=== PATIENT | female | born 1940 | race Caucasian/White ===

== ENCOUNTER 2017-11-02 16:06 | Inpatient (IN) | payer MEDICARE, OTHER ==
[~2017-11-02] VITALS: Ht 154.9 cm; Wt 80.0 kg
[2017-11-02 17:27] LABS: BASOPHILS # (AUTO) 0.1 X10'3 (0-0.2); BASOPHILS % (AUTO) 0.8 % (0-1); EOSINOPHILS # (AUTO) 0.1 X10'3 (0-0.9); EOSINOPHILS % (AUTO) 1.8 % (0-6); HEMATOCRIT 37.3 % (35.0-45.0); HEMOGLOBIN 12.3 g/dl (12.0-16.0); LYMPHOCYTES # (AUTO) 2.3 X10'3 (1.1-4.8); LYMPHOCYTES % (AUTO) 34.9 % (21-51); MEAN CORPUSCULAR HEMOGLOBIN 31.2 PG (27.0-31.0); MEAN CORPUSCULAR VOLUME 94.6 FL (78-98); MEAN PLATELET VOLUME 11.2 FL (7.4-10.4); MONOCYTES # (AUTO) 0.4 X10'3 (0-0.9); MONOCYTES % (AUTO) 6.7 % (2-12); NEUTROPHILS # (AUTO) 3.6 X10'3 (1.8-7.7); NEUTROPHILS % (AUTO) 55.8 % (42-75); PLATELET COUNT 154 X10'3 (140-440); RED BLOOD COUNT 3.94 X10'6 (4.20-5.60); RED CELL DISTRIBUTION WIDTH 14.3 % (11.5-14.5); WHITE BLOOD COUNT 6.5 X10'3 (4.5-11.0)
[2017-11-02 17:38] LABS: ALANINE AMINOTRANSFERASE 45 U/L (12-78); ALBUMIN 3.4 G/DL (3.4-5.0); ALBUMIN/GLOBULIN RATIO 0.9 (1.1-1.5); ALKALINE PHOSPHATASE 99 IU/L (46-116); ANION GAP 9 (8-16); ASPARTATE AMINO TRANSFERASE 48 U/L (10-37); BILIRUBIN,TOTAL 0.7 MG/DL (0.1-1.0); CHLORIDE 105 MMOL/L (99-107); CREATININE 0.94 MG/DL (0.40-0.90); GLUCOSE 91 MG/DL (70-104); MAGNESIUM 2.3 MG/DL (1.5-2.4); POTASSIUM 3.6 MMOL/L (3.5-5.1); SODIUM 143 MMOL/L (135-145); TOTAL CARBON DIOXIDE 28.9 MMOL/L (24-32); TOTAL PROTEIN 7.3 G/DL (6.4-8.2); eGFR 58 ML/MIN
[2017-11-02 17:49] LABS: BLOOD UREA NITROGEN 14 MG/DL (7-18); BUN/CREATININE RATIO 14.9 (6.6-38.0)
[2017-11-02] MEDS ORDERED: acetaminophen 325mg tablet PO PRN (18:50)
[2017-11-02] MEDS ORDERED: potassium Cl 20 mEq SR tablet PO PRN (18:50)
[2017-11-02] MEDS ORDERED: potassium Cl 40MEQ/NS 500ml 500 ML IV PRN ×2 (18:50)
[2017-11-02] MEDS ORDERED: mag hydrox/Alum hydrox/simeth 30ml oral suspension PO PRN (18:50)
[2017-11-02] MEDS ORDERED: HYDROmorphone 1 mg/ml syringe IV PRN (18:50)
[2017-11-02] MEDS ORDERED: magnesium Cl slow-release 64mg tablet PO PRN (18:50)
[2017-11-02] MEDS ORDERED: magnesium 4gm in 100ml NS 100 ML IV PRN (18:50)
[2017-11-02] MEDS ORDERED: magnesium hydroxide 30ml (MOM) UD suspension PO PRN (18:50)
[2017-11-02] MEDS ORDERED: ondansetron/PF 4mg/2ml inj IV PRN (18:50)
[2017-11-02] MEDS ORDERED: magnesium 2GM in 50ml NS 50 ML IV PRN (18:50)
[2017-11-02] MEDS ORDERED: atropine 1 MG/1 ML vial IV ONE (18:55)
[2017-11-02] MEDS ORDERED: atropine 0.1mg/ml 10ml syringe IV ONE (19:10)
[2017-11-02] MEDS ORDERED: SYN0.088T PO (19:13)
[2017-11-02] MEDS ORDERED: HYDR-565 PO (19:13)
[2017-11-02] MEDS ORDERED: NO HOME MEDS (19:16)
[2017-11-02] MEDS: lisinopril 10 MG tablet PO SCH (19:18)
[2017-11-02 20:15] VITALS: BP 186/58
[2017-11-02] MEDS: HYDROmorphone inj. 0.5 MG/0.5 ML DISP.SYRIN IV PRN (21:30)
[2017-11-02] MEDS: furosemide 20 MG/2 ML vial IV SCH (21:35)
[2017-11-02] MEDS ORDERED: hydrALAZINE 20mg/ml inj. IV ONE ×2 (22:05)
[2017-11-02 23:00] VITALS: BP 175/0
[2017-11-02] MEDS ORDERED: amLODIPine 5mg tablet PO SCH (23:05)
[2017-11-03] VITALS (22 sets, daily range): BP systolic 133–188; BP diastolic 45–91
[2017-11-03] MEDS: HYDROcodone/acetaminophen 10/325mg tab PO PRN ×2 (00:19→19:04)
[2017-11-03] MEDS ORDERED: amLODIPine 5mg tablet PO SCH (00:35)
[2017-11-03] MEDS: HYDROmorphone inj. 0.5 MG/0.5 ML DISP.SYRIN IV PRN (05:09)
[2017-11-03 06:21] LABS: BASOPHILS # (AUTO) 0.1 X10'3 (0-0.2); EOSINOPHILS # (AUTO) 0.1 X10'3 (0-0.9); EOSINOPHILS % (AUTO) 1.6 % (0-6); HEMATOCRIT 38.1 % (35.0-45.0); HEMOGLOBIN 12.6 g/dl (12.0-16.0); LYMPHOCYTES % (AUTO) 30.9 % (21-51); MEAN CORPUSCULAR HGB CONC 32.9 % (33.0-36.5); MEAN PLATELET VOLUME 11.2 FL (7.4-10.4); MONOCYTES # (AUTO) 0.6 X10'3 (0-0.9); MONOCYTES % (AUTO) 9.8 % (2-12); NEUTROPHILS # (AUTO) 3.7 X10'3 (1.8-7.7); NEUTROPHILS % (AUTO) 56.7 % (42-75); PLATELET COUNT 144 X10'3 (140-440); RED BLOOD COUNT 4.06 X10'6 (4.20-5.60); RED CELL DISTRIBUTION WIDTH 14.3 % (11.5-14.5); WHITE BLOOD COUNT 6.5 X10'3 (4.5-11.0)
[2017-11-03] MEDS ORDERED: ringers solution, lacted 1,000 ML IV SCH (06:47)
[2017-11-03] MEDS ORDERED: fentaNYL/PF 50MCG/1 ML 2ML syringe IV PRN ×2 (06:50)
[2017-11-03] MEDS ORDERED: LIDOcaine 1% 30ml vial 0 ML ONE (06:50)
[2017-11-03] MEDS ORDERED: hydrALAZINE 20mg/ml inj. IV PRN (06:50)
[2017-11-03] MEDS ORDERED: ondansetron/PF 4mg/2ml inj IV PRN (06:50)
[2017-11-03] MEDS ORDERED: enalaprilat dihydrate 2.5mg/2ml vial IV PRN (06:50)
[2017-11-03] MEDS ORDERED: epiNEPHrine 1 mg/ml inj ONE ×2 (06:50→07:12)
[2017-11-03 06:54] LABS: ALANINE AMINOTRANSFERASE 41 U/L (12-78); ALBUMIN 3.1 G/DL (3.4-5.0); ALBUMIN/GLOBULIN RATIO 0.8 (1.1-1.5); ALKALINE PHOSPHATASE 92 IU/L (46-116); ANION GAP 9 (8-16); ASPARTATE AMINO TRANSFERASE 44 U/L (10-37); BILIRUBIN,TOTAL 0.8 MG/DL (0.1-1.0); BLOOD UREA NITROGEN 12 MG/DL (7-18); BUN/CREATININE RATIO 13.5 (6.6-38.0); CALCIUM 9.2 MG/DL (8.5-10.1); CHLORIDE 105 MMOL/L (99-107); CREATININE 0.89 MG/DL (0.40-0.90); GLUCOSE 80 MG/DL (70-104); POTASSIUM 3.3 MMOL/L (3.5-5.1); SODIUM 142 MMOL/L (135-145); TOTAL CARBON DIOXIDE 28.3 MMOL/L (24-32); TOTAL PROTEIN 6.8 G/DL (6.4-8.2); eGFR 62 ML/MIN
[2017-11-03 06:56] LABS: MAGNESIUM 2.1 MG/DL (1.5-2.4)
[2017-11-03] MEDS ORDERED: ceFAZolin 2gm in dextrose, iso 100 ML IV STA (07:06)
[2017-11-03] MEDS ORDERED: LIDOCAINE 1% ONE (07:12)
[2017-11-03] MEDS ORDERED: midazolam 2 mg/2 ml injection ONE (07:34)
[2017-11-03] MEDS: levoTHYROXINE 88mcg tablet PO SCH (08:00)
[2017-11-03] MEDS: furosemide 20 MG/2 ML vial IV SCH ×2 (08:00→19:05)
[2017-11-03] MEDS: K and/or MAG REPLACEMENT MC SCH (08:00)
[2017-11-03] MEDS ORDERED: LIDOcaine 1% 30ml vial IJ ONE (08:17)
[2017-11-03] MEDS ORDERED: propofol inj 40 ML IV ONE (09:46)
[2017-11-03] MEDS: lisinopril 10 MG tablet PO SCH ×2 (12:15→19:08)
[2017-11-03] MEDS: potassium Cl 20 mEq SR tablet PO PRN ×2 (13:51→19:07)
[2017-11-03] MEDS ORDERED: lisinopril 10 MG tablet PO ONE (16:00)
[2017-11-03] MEDS: amLODIPine 5mg tablet PO SCH (21:18)
[2017-11-04] MEDS: HYDROcodone/acetaminophen 10/325mg tab PO PRN ×4 (02:22→22:13)
[2017-11-04 03:00] VITALS: BP 157/59
[2017-11-04 06:00] VITALS: BP 150/63
[2017-11-04 06:47] LABS: BASOPHILS % (AUTO) 0.5 % (0-1); EOSINOPHILS # (AUTO) 0.1 X10'3 (0-0.9); EOSINOPHILS % (AUTO) 2.1 % (0-6); HEMATOCRIT 41.1 % (35.0-45.0); HEMOGLOBIN 13.8 g/dl (12.0-16.0); LYMPHOCYTES # (AUTO) 2.1 X10'3 (1.1-4.8); LYMPHOCYTES % (AUTO) 31.4 % (21-51); MEAN CORPUSCULAR HEMOGLOBIN 31.5 PG (27.0-31.0); MEAN CORPUSCULAR HGB CONC 33.5 % (33.0-36.5); MEAN PLATELET VOLUME 10.9 FL (7.4-10.4); MONOCYTES # (AUTO) 0.5 X10'3 (0-0.9); MONOCYTES % (AUTO) 8.1 % (2-12); NEUTROPHILS # (AUTO) 3.9 X10'3 (1.8-7.7); NEUTROPHILS % (AUTO) 57.9 % (42-75); PLATELET COUNT 145 X10'3 (140-440); RED BLOOD COUNT 4.37 X10'6 (4.20-5.60); RED CELL DISTRIBUTION WIDTH 14.3 % (11.5-14.5); WHITE BLOOD COUNT 6.8 X10'3 (4.5-11.0)
[2017-11-04 07:05] LABS: LARGE PLATELETS FEW; PLATELET ESTIMATE NORMAL
[2017-11-04 07:11] LABS: ALANINE AMINOTRANSFERASE 31 U/L (12-78); ALBUMIN 3.1 G/DL (3.4-5.0); ALBUMIN/GLOBULIN RATIO 0.8 (1.1-1.5); ALKALINE PHOSPHATASE 99 IU/L (46-116); ANION GAP 7 (8-16); ASPARTATE AMINO TRANSFERASE 39 U/L (10-37); BILIRUBIN,TOTAL 0.6 MG/DL (0.1-1.0); BLOOD UREA NITROGEN 13 MG/DL (7-18); BUN/CREATININE RATIO 14.3 (6.6-38.0); CALCIUM 9.3 MG/DL (8.5-10.1); CHLORIDE 103 MMOL/L (99-107); CREATININE 0.91 MG/DL (0.40-0.90); GLUCOSE 75 MG/DL (70-104); MAGNESIUM 2.3 MG/DL (1.5-2.4); POTASSIUM 4.2 MMOL/L (3.5-5.1); SODIUM 139 MMOL/L (135-145); TOTAL CARBON DIOXIDE 29.4 MMOL/L (24-32); TOTAL PROTEIN 7.2 G/DL (6.4-8.2); eGFR 60 ML/MIN
[2017-11-04] MEDS: K and/or MAG REPLACEMENT MC SCH (08:00)
[2017-11-04] MEDS: furosemide 20 MG/2 ML vial IV SCH (08:44)
[2017-11-04] MEDS: levoTHYROXINE 88mcg tablet PO SCH (08:46)
[2017-11-04] MEDS: lisinopril 10 MG tablet PO SCH (08:46)
[2017-11-04] MEDS: amLODIPine 5mg tablet PO SCH (08:46)
[2017-11-04] MEDS: HYDROmorphone inj. 0.5 MG/0.5 ML DISP.SYRIN IV PRN ×2 (10:24→21:38)
[2017-11-04 11:00] VITALS: BP 136/56
[2017-11-04 15:00] VITALS: BP 151/59
[2017-11-04 19:00] VITALS: BP 123/50
[2017-11-04] MEDS ORDERED: temazepam 15mg capsule PO PRN (19:45)
[2017-11-04 23:00] VITALS: BP 128/64
[2017-11-05] VITALS (17 sets, daily range): BP systolic 114–164; BP diastolic 45–76
[2017-11-05] MEDS: HYDROmorphone inj. 0.5 MG/0.5 ML DISP.SYRIN IV PRN ×2 (05:19→22:16)
[2017-11-05 06:12] LABS: BASOPHILS % (AUTO) 0.7 % (0-1); EOSINOPHILS # (AUTO) 0.2 X10'3 (0-0.9); EOSINOPHILS % (AUTO) 3.5 % (0-6); HEMATOCRIT 36.2 % (35.0-45.0); HEMOGLOBIN 11.7 g/dl (12.0-16.0); LYMPHOCYTES # (AUTO) 1.6 X10'3 (1.1-4.8); LYMPHOCYTES % (AUTO) 29.4 % (21-51); MEAN CORPUSCULAR HGB CONC 32.5 % (33.0-36.5); MEAN CORPUSCULAR VOLUME 95.3 FL (78-98); MEAN PLATELET VOLUME 10.5 FL (7.4-10.4); MONOCYTES # (AUTO) 0.6 X10'3 (0-0.9); MONOCYTES % (AUTO) 10.7 % (2-12); NEUTROPHILS # (AUTO) 3.1 X10'3 (1.8-7.7); NEUTROPHILS % (AUTO) 55.7 % (42-75); PLATELET COUNT 136 X10'3 (140-440); RED BLOOD COUNT 3.79 X10'6 (4.20-5.60); RED CELL DISTRIBUTION WIDTH 14.3 % (11.5-14.5); WHITE BLOOD COUNT 5.5 X10'3 (4.5-11.0)
[2017-11-05 06:27] LABS: ALANINE AMINOTRANSFERASE 25 U/L (12-78); ALBUMIN 2.4 G/DL (3.4-5.0); ALBUMIN/GLOBULIN RATIO 0.7 (1.1-1.5); ALKALINE PHOSPHATASE 83 IU/L (46-116); ANION GAP 4 (8-16); ASPARTATE AMINO TRANSFERASE 28 U/L (10-37); BILIRUBIN,TOTAL 0.5 MG/DL (0.1-1.0); BLOOD UREA NITROGEN 17 MG/DL (7-18); BUN/CREATININE RATIO 19.3 (6.6-38.0); CALCIUM 8.6 MG/DL (8.5-10.1); CHLORIDE 105 MMOL/L (99-107); CREATININE 0.88 MG/DL (0.40-0.90); GLUCOSE 74 MG/DL (70-104); MAGNESIUM 2.1 MG/DL (1.5-2.4); POTASSIUM 3.6 MMOL/L (3.5-5.1); SODIUM 139 MMOL/L (135-145); TOTAL CARBON DIOXIDE 30.4 MMOL/L (24-32); TOTAL PROTEIN 5.8 G/DL (6.4-8.2); eGFR 63 ML/MIN
[2017-11-05] MEDS: levoTHYROXINE 88mcg tablet PO SCH (07:18)
[2017-11-05] MEDS: lisinopril 10 MG tablet PO SCH (07:18)
[2017-11-05] MEDS: amLODIPine 5mg tablet PO SCH (07:18)
[2017-11-05] MEDS: HYDROcodone/acetaminophen 10/325mg tab PO PRN ×4 (07:20→23:17)
[2017-11-05] MEDS: K and/or MAG REPLACEMENT MC SCH (07:28)
[2017-11-05] MEDS ORDERED: normal saline 1000ml 1,000 ML IV SCH (14:00)
[2017-11-05] MEDS ORDERED: iohexol 350MG/ML 100ml bottle IV ONE (14:45)
[2017-11-05] MEDS ORDERED: LIDOcaine 1%/PF (10mg/ml) 5ml vial ONE (14:45)
[2017-11-05] MEDS ORDERED: iohexol 350 MG/ML 50ML vial IV ONE ×2 (14:45→15:41)
[2017-11-05] MEDS ORDERED: fentaNYL/PF 50MCG/1 ML 2ML syringe ONE (15:18)
[2017-11-05] MEDS ORDERED: midazolam 2 mg/2 ml injection ONE (15:18)
[2017-11-05] MEDS ORDERED: metoprolol tartrate 1mg/ml inj IV ONE (15:39)
[2017-11-05] MEDS ORDERED: hydrALAZINE 20mg/ml inj. IV ONE (15:57)
[2017-11-05] MEDS ORDERED: normal saline 1000ml 1,000 ML IV ONE (16:30)
[2017-11-05] MEDS ORDERED: nitroGLYCERIN 0.4mg SUBLingual tab SL PRN (17:05)
[2017-11-05] MEDS ORDERED: OXAZEpam 15mg capsule PO PRN (17:05)
[2017-11-05] MEDS ORDERED: ondansetron/PF 4mg/2ml inj IV PRN (17:05)
[2017-11-05] MEDS ORDERED: HYDROcodone/acetaminophen 5mg/325mg tablet PO PRN (17:05)
[2017-11-05] MEDS ORDERED: proCHLORperazine 10 MG/2 ml inj IV PRN (17:05)
[2017-11-05] MEDS: metoprolol tartrate 25mg tablet PO SCH (19:31)
[2017-11-06 03:00] VITALS: BP 141/59
[2017-11-06 05:18] LABS: BASOPHILS % (AUTO) 0.6 % (0-1); EOSINOPHILS # (AUTO) 0.3 X10'3 (0-0.9); HEMATOCRIT 36.9 % (35.0-45.0); HEMOGLOBIN 12.1 g/dl (12.0-16.0); LYMPHOCYTES # (AUTO) 1.3 X10'3 (1.1-4.8); LYMPHOCYTES % (AUTO) 23.2 % (21-51); MEAN CORPUSCULAR HEMOGLOBIN 31.2 PG (27.0-31.0); MEAN CORPUSCULAR HGB CONC 32.8 % (33.0-36.5); MEAN PLATELET VOLUME 9.9 FL (7.4-10.4); MONOCYTES # (AUTO) 0.5 X10'3 (0-0.9); MONOCYTES % (AUTO) 9.5 % (2-12); NEUTROPHILS # (AUTO) 3.5 X10'3 (1.8-7.7); NEUTROPHILS % (AUTO) 61.7 % (42-75); PLATELET COUNT 142 X10'3 (140-440); RED BLOOD COUNT 3.89 X10'6 (4.20-5.60); WHITE BLOOD COUNT 5.6 X10'3 (4.5-11.0)
[2017-11-06 05:56] LABS: ALANINE AMINOTRANSFERASE 24 U/L (12-78); ALBUMIN 2.5 G/DL (3.4-5.0); ALBUMIN/GLOBULIN RATIO 0.7 (1.1-1.5); ALKALINE PHOSPHATASE 77 IU/L (46-116); ANION GAP 6 (8-16); ASPARTATE AMINO TRANSFERASE 26 U/L (10-37); BILIRUBIN,TOTAL 0.5 MG/DL (0.1-1.0); BLOOD UREA NITROGEN 11 MG/DL (7-18); BUN/CREATININE RATIO 15.1 (6.6-38.0); CALCIUM 8.5 MG/DL (8.5-10.1); CHLORIDE 107 MMOL/L (99-107); CREATININE 0.73 MG/DL (0.40-0.90); GLUCOSE 80 MG/DL (70-104); POTASSIUM 3.5 MMOL/L (3.5-5.1); SODIUM 141 MMOL/L (135-145); TOTAL CARBON DIOXIDE 28.5 MMOL/L (24-32); TOTAL PROTEIN 5.9 G/DL (6.4-8.2); eGFR 78 ML/MIN
[2017-11-06 06:00] VITALS: BP 143/69
[2017-11-06] MEDS: K and/or MAG REPLACEMENT MC SCH (08:00)
[2017-11-06] MEDS: HYDROcodone/acetaminophen 10/325mg tab PO PRN ×2 (09:40→14:37)
[2017-11-06] MEDS: amLODIPine 5mg tablet PO SCH (09:41)
[2017-11-06] MEDS: lisinopril 10 MG tablet PO SCH (09:42)
[2017-11-06] MEDS: metoprolol tartrate 25mg tablet PO SCH (09:42)
[2017-11-06] MEDS: levoTHYROXINE 88mcg tablet PO SCH (09:42)
[2017-11-06 11:00] VITALS: BP 125/56
[2017-11-06] MEDS ORDERED: ATOR10TA PO (11:33)
[2017-11-06] MEDS ORDERED: LISI10TA4 PO (11:33)
[2017-11-06] MEDS ORDERED: METO25TA6 PO (11:33)
[2017-11-06] MEDS ORDERED: NITR0.4T51 SL (11:33)
[2017-11-06] MEDS ORDERED: AMLO5TAB16 PO (11:33)
[2017-11-07] MEDS ORDERED: atorvastatin 10mg tablet PO SCH (08:00)
== END 2017-11-06 15:05 | disposition home or self-care (01) | DRG 242 ==
LOC: ER 16:06 → ED HOLD 18:51 → PCU 3S 20:15
PROVIDERS: ADMIT Internal Medicine; ATTEND Family Medicine
PROC: 02H63JZ Insertion of Pacemaker Lead into Right Atrium, Percutaneous Approach (ICD-10-PCS; 2017-11-03)
PROC: 02HK3JZ Insertion of Pacemaker Lead into Right Ventricle, Percutaneous Approach (ICD-10-PCS; 2017-11-03)
PROC: 0JH606Z Insertion of Pacemaker, Dual Chamber into Chest Subcutaneous Tissue and Fascia, Open Approach (ICD-10-PCS; principal; 2017-11-03 07:26)
PROC: 4A023N7 Measurement of Cardiac Sampling and Pressure, Left Heart, Percutaneous Approach (ICD-10-PCS; 2017-11-05)
PROC: B2111ZZ Fluoroscopy of Multiple Coronary Arteries using Low Osmolar Contrast (ICD-10-PCS; 2017-11-05)
PROC: B2151ZZ Fluoroscopy of Left Heart using Low Osmolar Contrast (ICD-10-PCS; 2017-11-05)
PROC: B3101ZZ Fluoroscopy of Thoracic Aorta using Low Osmolar Contrast (ICD-10-PCS; 2017-11-05)
DX: I49.5 Sick sinus syndrome (principal); I21.4 Non-ST elevation (NSTEMI) myocardial infarction; I48.0 Paroxysmal atrial fibrillation; I50.32 Chronic diastolic (congestive) heart failure; I44.1 Atrioventricular block, second degree; I11.0 Hypertensive heart disease with heart failure; I08.1 Rheumatic disorders of both mitral and tricuspid valves; E89.0 Postprocedural hypothyroidism; G89.4 Chronic pain syndrome; I25.10 Atherosclerotic heart disease of native coronary artery without angina pectoris; M19.90 Unspecified osteoarthritis, unspecified site; N81.10 Cystocele, unspecified; M54.9 Dorsalgia, unspecified; Z79.899 Other long term (current) drug therapy; Z88.2 Allergy status to sulfonamides; Z88.6 Allergy status to analgesic agent
CPT/HCPCS: 36415; 71045; 71048; 76001; 80053; 83735; 83880; 84484; 85025; 87070; 93005; 93306; 93458; 93567; 99152; 99153; 99285; A4565; A4620; A6257; A7000; C1769; C1785; J0171; J0360; J0461; J0690; J1170; J1644; J1940; J2001; J2250; J2270; J2704; J3010; J3490; J7030; J7120; Q9967